=== PATIENT | female | born 2005 | race Caucasian/White ===

== ENCOUNTER 2024-05-13 13:01 | Emergency (ER) | payer OTHER, SELFPAY ==
[2024-05-13 13:12] VITALS: BP 125/53
[2024-05-13 13:41] LABS: % Basophils 0.5 % (0-2); % Eosinophils 4.4 % (0-6); % Immature Granulocytes 0.6 % (0-0.5); % Lymphocytes 25.2 % (20.5-51.1); % Neutrophils 62.3 % (42.2-75.2); Absolute Basophils 0.1 10^3/uL (0-0.2); Absolute Eosinophils 0.4 10^3/uL (0-0.7); Absolute Immature Granulocytes 0.1 10^3/uL (0-0.05); Absolute Lymphocytes 2.5 10^3/uL (1.2-3.4); Absolute Monocytes 0.7 10^3/uL (0.1-0.6); Absolute Neutrophils 6.1 10^3/uL (1.4-6.5); Hematocrit 40.7 % (37.0-47.0); Hemoglobin 14.5 g/dL (12.0-16.0); Mean Corp Hgb Conc. 35.6 g/dL (33.0-37.0); Mean Corpuscular Hgb 29.4 pg (27.0-31.0); Mean Corpuscular Volume 82.4 fL (81.0-99.0); Mean Platelet Volume 8.8 fL (7.4-10.4); Nucleated Red Blood Cells % 0 %; Platelet Count 279 10^3/uL (130-400); Red Blood Cell Count 4.94 10^6/uL (4.20-5.40); Red Cell Dist. Width 11.9 % (11.5-14.5); White Blood Cell Count 9.8 10^3/uL (4.8-10.8)
[2024-05-13 13:56] LABS: ALT (SGPT) 47 U/L (0-35); AST (SGOT) 40 U/L (14-36); Albumin 4.5 g/dl (3.5-5.0); Alkaline Phosphatase 71 U/L (38-126); Blood Urea Nitrogen 13 mg/dl (7-17); Carbon Dioxide 27 mmol/L (22-30); Chloride 105 mmol/L (98-107); Glucose 103 mg/dl (70-99); Potassium 4.8 mmol/L (3.5-5.1); Sodium 136 mmol/L (135-145); Total Bilirubin 0.5 mg/dl (0.2-1.3); Total Protein 7.1 g/dl (6.3-8.2); eGFR > 60.00
[2024-05-13 14:58] VITALS: BMI 24.2
[2024-05-13 15:03] VITALS: BP 108/66
--- NOTE | 2024-05-13 15:46 | ED.GENMED ---
History of Present Illness
General
Chief Complaint: Abdominal Pain
Time Seen by Provider: 05/13/24 14:52
History of Present Illness
History of Present Illness:
Patient is a 19-year-old female with past medical history of migraine disorder, asthma, and prior appendectomy here today for evaluation of approximately 2 days of left-sided abdominal pain. At times, the pain radiates along her left upper lateral
ribs as well as along the left side of her chest wall. No back pain. Pain comes and goes but is noted to be worse with movement. She denies pain along the right side of her abdomen. She has noted worsening pain with movement and deep
inspiration. She also endorses mild chest discomfort. No fevers or cough. No recent surgeries or immobilizations. No active cancer. No personal history of DVT/PE. No unilateral lower extremity pain or swelling. No hemoptysis. The patient
denies current estrogen use but did recently stop taking estrogen approximately 2 months ago. She has not noted any overlying skin changes. The patient does report lifting and moving recently this past Saturday. She also reports sustaining a fall
last week landing on her back.
Past History
Social History
Tobacco: Non-smoker
Alcohol: None
Drug: None
Review of Systems
Review of Systems
All Other Systems: ROS reviewed and negative except as documented in HPI and ROS
Phy Exam
Physical Exam
Physical Exam:
GENERAL: Alert , in no apparent distress
EYE: pupils equal and reactive
NECK: Supple, no significant adenopathy.
ENT: o/p clr, mmm.
CARDIAC: Regular rate and rhythm .
LUNGS: Clear breath sounds bilaterally, no acute respiratory distress, no wheezes/rales/rhonchi
ABDOMEN: Soft, with mild tenderness along the LUQ/LLQ no r/g, no cvat
NEUROLOGICAL: Alert and oriented, no focal neuro deficits
SKIN: Warm and dry, skin intact.
MUSCULOSKELETAL: No edema, well perfused. There is mild tenderness along left lateral upper ribs, there is no tenderness along the back, there is symmetric chest wall expansion, no deformities or step-offs appreciated, no ecchymosis, no overlying
skin changes
PSYCH: Normal and appropriate interaction.
Course
Orders/Labs/Results
Orders:
Orders
05/13/24 13:16
ECG [Electrocardiogram (*1)] Urgent
Reason for Study: Chest Pain
05/13/24 13:17
EKG- Treatment ONCE
05/13/24 13:22
Complete Blood Count/With Diff Urgent
Comprehensive Metabolic Panel Urgent
HCG, Serum Qualitative Screen Urgent
Comment: HCG QUALITATIVE ADDED ON BY FLOOR 3:50PM 05-13-24
05/13/24 15:24
Electrocardiogram (*1) Urgent
Reason for Study: Chest Pain
EKG- Treatment ONCE
05/13/24 15:25
CR Chest - 2 Views Urgent
Comment:
Reason For Exam: sob
05/13/24 15:30
D-Dimer Urgent
Troponin I Urgent
05/13/24 15:48
Add On- LAB Urgent
Tests Added?: hcg qualitative
05/13/24 16:01
CR Ribs-left 2 Vw No Pa Chest Urgent
Comment:
Reason For Exam: rib pain left side
Abnormal Lab Results
05/13/24
13:22
Abs Immat Gran (auto) 0.1 H 10^3/uL
(0-0.05)
Absolute Monos (auto) 0.7 H 10^3/uL
(0.1-0.6)
Immature Gran % 0.6 H %
(0-0.5)
Glucose 103 H mg/dl
(70-99)
AST 40 H U/L
(14-36)
ALT 47 H U/L
(0-35)
05/13/24 13:22
05/13/24 13:22
Vital Signs
Initial and Last Documented VS:
Initial Vital Signs
Temp Pulse Resp BP Pulse Ox
98.8 F 81 16 125/53 97
05/13/24 13:12 05/13/24 13:12 05/13/24 13:12 05/13/24 13:12 05/13/24 13:12
Last Documented Vital Signs
Temp Pulse Resp BP Pulse Ox
98.8 F 81 16 118/72 100
05/13/24 13:12 05/13/24 15:03 05/13/24 13:12 05/13/24 16:23 05/13/24 15:03
MDM/Problems Addressed
Differential Diagnosis Includes:
Patient is a 19-year-old female with past medical history of migraine disorder, asthma, and prior appendectomy here today for evaluation of approximately 2 days of left-sided abdominal pain. Overall, patient appears very well. Vital signs grossly
within normal limits. Physical examination described above. Patient is currently low risk Wells criteria and PERC negative but does report recent estrogen containing control use. Out of an abundance of caution we will obtain a workup
including EKG, chest x-ray, and screening labs. Will also obtain troponin and D-dimer. Will obtain test.
05/13/2024 17:05: Screening labs reveal a very mild transaminitis without baseline labs to compare to. Glucose 103. EKG nonischemic. Chest/rib x-rays negative. At this time, my suspicion for a muscular etiology is high. Findings may be
secondary to the recent lifting versus recent fall. The patient has no emergent findings identified. Findings may also be secondary to GERD. The patient is minimally tender in the abdomen and has no rebound or guarding. No vomiting. No fevers.
She has a full appetite and is able to tolerate p.o. appropriately. I do not believe the patient has an intra-abdominal emergent pathology at this time. I did discuss performing a CT scan to further evaluate this but patient declined. I do think
this is reasonable at this time. The patient was provided with very strict return precautions for worsening symptoms. Recommend supportive measures and close follow-up with her doctor. Patient voices understanding. She appears well and stable for
discharge. All questions answered
*Critical Care Note
Total Time (30-74mins, 75-104mins- exclusive of procedures): Not Applicable
ED Attending Note
-
Portions of this chart may have been created with voice recognition software.� Occasional wrong word or��sound alike� substitutions may have occurred due to the inherent limitations of voice recognition software.
Discharge Plan
Departure
Patient Disposition: Home (Routine Discharge)
Date of Disposition: 05/13/24
Time of Disposition: 17:18
Patient with high blood pressure during this ER visit?: No
Condition: Good
Covid-19: Not Applicable
Discharge Problem:
Abdominal pain
Instructions: Abdominal Pain
Prescriptions:
No Action
montelukast [Singulair] 5 MG tablet,chewable
5 mg PO DAILY
cetirizine [Zyrtec] 5 MG tablet
5 mg PO DAILY
albuterol sulfate 1 PUFF HFA aerosol inhaler
1 puff inhalation DAILY
acetaminophen 325 MG tablet
650 mg PO Q4HPRN PRN (Reason: mild pain) Qty: 1 0RF
ibuprofen 200 MG tablet
400 mg PO Q6HPRN PRN (Reason: moderate pain) Qty: 1 0RF
Referrals:
Sohan Morley DO [Family Provider] - Follow up in 5-7 days
Activity Restrictions/Additional Instructions:
You were seen today for evaluation of abdominal and chest pain.
We obtained blood work which reveals a mildly elevated AST/ALT (liver function tests).
Your x-rays are normal.
Your symptoms appear secondary to a muscular strain.
Rest. Avoid heavy lifting. Take [id number] analgesics as directed as needed for pain.
Follow-up with your doctor within the next 5 to 7 days for close reevaluation.
Return for any new, worsening, or concerning symptoms
Interventions
Interventions:
*Risk Screen - Suicide Last Done: 05/13/24 14:58
*General Assessment Last Done: 05/13/24 14:58
*Neglect/Abuse Screening Last Done: 05/13/24 15:02
ED- Fall Risk Assessment Last Done: 05/13/24 14:58
*ED COVID-19 Vaccine History Last Done: 05/13/24 14:58
RG-Tjsbaa-Vlbwmgyppw Assessment Last Done: 05/13/24 14:58
Discharge Date and Time
Print Language: SOMALI
[2024-05-13 16:00] LABS: D-Dimer 0.33 ug/mlFEU (0.00-0.50)
[2024-05-13 16:23] VITALS: BP 118/72
[2024-05-13 16:26] LABS: Troponin I < 0.012 ng/ml
[2024-05-13 17:08] LABS: HCG, Serum Qualitative Screen Negative
== END 2024-05-13 17:30 | disposition home or self-care (01) ==
LOC: EMR 13:01
PROVIDERS: Physician Assistant; EMERGENCY PHYSICIAN Emergency Medicine; FAMILY PHYSICIAN Pediatrics
DX: R10.9 Unspecified abdominal pain (principal); W19.XXXA Unspecified fall, initial encounter; J45.909 Unspecified asthma, uncomplicated
CPT/HCPCS: 99285; 71046; 71100; 80053; 84484; 84703; 85025; 85379; 93005